=== PATIENT | female | born 1980 | race Caucasian/White ===

== ENCOUNTER → 2017-08-01 | Outpatient (CLI) | payer OTHER ==
[~2017-08-01] MED LIST: CIPR500T78 PO; HYDR-1231 PO; HYDR25SU28 RC; LEVO750T9 PO; LISI20TA PO; METO25TA; METO25TA PO; METR500T PO; MULT-608; NEBI5TAB8 PO; OXYC-12 PO; PRENATAL VIT; TRZ50T
--- NOTE | 2017-08-01 13:11 | Diagnostic Imaging Report ---
3 views of the lumbar spine. INDICATION: Low back pain. FINDINGS: There is satisfactory alignment of the lumbar spine at the posterior spinal line. The vertebral body heights are preserved. Disc heights are also preserved. No significant osteophyte formation seen. There is symmetric appearance of the SI joints. The paravertebral soft tissues appear unremarkable. There is an IUD seen in the pelvis and cholecystectomy clips noted. IMPRESSION: Unremarkable exam. Dictated by: Dictated on workstation # [id number]
== END ==
LOC: RAD 10:15
PROVIDERS: ATTEND Chiropractor
DX: M54.5 Low back pain (principal)
CPT/HCPCS: 72100

== ENCOUNTER → 2019-03-12 | Outpatient (CLI) | payer OTHER ==
--- NOTE | 2019-03-12 14:32 | Diagnostic Imaging Report ---
INDICATION: Routine screening. COMPARISON: No prior mammograms are available for comparison. This is a baseline study. TECHNIQUE: 2D and 3D bilateral screening mammography was performed with CAD. FINDINGS: Both breasts are heterogeneously dense, limiting the sensitivity of mammography. No mass or malignant appearing microcalcifications are seen. The axillae are unremarkable. IMPRESSION: No mammographic features suspicious for malignancy are identified. ACR BI-RADS Category 1: Negative. Result letter will be mailed to the patient. Note: At least 10% of breast cancer is not imaged by mammography. Dictated by: Dictated on workstation # [id number]
== END ==
LOC: RAD 07:43
PROVIDERS: ATTEND Obstetrics & Gynecology
DX: Z12.31 Encounter for screening mammogram for malignant neoplasm of breast (principal)
CPT/HCPCS: 77067

== ENCOUNTER → 2019-04-24 | Outpatient (CLI) | payer OTHER ==
--- NOTE | 2019-04-24 11:20 | Diagnostic Imaging Report ---
PROCEDURE: MRI right joint upper extremity without contrast. TECHNIQUE: Multiplanar, multisequence non contrast-enhanced MRI of the right upper extremity was accomplished. INDICATION: Elbow pain. COMPARISON: There are no prior studies available for comparison. FINDINGS: By history, the patient has pain along the posterolateral aspect of the elbow joint. A marker was placed over the area of concern. There is no mass or cyst in this area and there is no abnormal signal arising from the musculature or osseous structures to suggest an acute abnormality. There is slightly increased signal within the subcutaneous fat in this region, however. This does suggest mild edema/inflammation. There is no other abnormality of the elbow joint. The osseous structures are intact. The biceps tendon and the triceps tendon show no sign of an acute abnormality. The ulnar collateral ligaments show no sign of an acute injury. There is no abnormal signal arising from the common extensor or common flexor bundles to suggest an acute abnormality. There is a small focus of abnormal signal near the attachment of the common extensor tendon on the coronal STIR series. This may be related to a minute tear. There is no evidence for a joint effusion. IMPRESSION: 1. There is mild edema/inflammation of the subcutaneous fat along the posterolateral aspect of the elbow joint in the region of the patient's area of concern. There is no discrete abnormality involving the muscle or osseous structures, however. 2. There is no sign of an acute bony abnormality otherwise. 3. The minute area of altered signal near the attachment of the common extensor tendon may be related to a small partial tear. The major ligaments and tendons are otherwise generally unremarkable. Dictated by: Dictated on workstation # [id number]
== END ==
LOC: RAD 07:54
PROVIDERS: ATTEND Nurse Practitioner Family
DX: M77.11 Lateral epicondylitis, right elbow (principal)
CPT/HCPCS: 73221